=== PATIENT | male | born 1995 | race American Indian/Alaskan Native ===

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

== ENCOUNTER 2017-07-08 07:59 | Emergency (ER) | payer SELFPAY ==
[2017-07-08 08:31] LABS: Hemoglobin 14.8 gm/dl (11.8-15.2); Mean Corpuscular HGB Conc 34 % (32-34); Mean Corpuscular Hemoglobin 31 pg (28-32); Mean Corpuscular Volume 91 fl (84-94); Platelet Count 264 K/mm3 (140-440); Red Blood Count 4.82 M/mm3 (3.65-5.03); Red Cell Distribution Width 12.6 % (13.2-15.2); White Blood Count 5.9 K/mm3 (4.5-11.0)
[2017-07-08 08:45] LABS: Anion Gap 9 mmol/L; BUN/Creatinine Ratio 19; Blood Urea Nitrogen 17 mg/dL (9-20); Calcium 7.4 mg/dL (8.4-10.2); Carbon Dioxide 31 mmol/L (22-30); Chloride 104.7 mmol/L (98-107); Glucose 93 mg/dL (75-100); Potassium 4.6 mmol/L (3.6-5.0); Sodium 140 mmol/L (137-145)
[2017-07-08 10:30] LABS: Blastocytes % (Manual) 0 %; Diff Status Complete; RBC Morphology Normal
--- NOTE | 2017-07-08 12:05 | Emergency Department Report ---
ED General Adult HPI - General Chief complaint: Extremity Problem,Nontraumatic Stated complaint: EDEMA SWELLING (NEPHROTIC SYNDROME) Time Seen by Provider: 07/08/17 11:51 Source: patient Mode of arrival: Ambulatory Limitations: No Limitations - History of Present Illness Initial comments: 21-year-old male who presents emergency Department with complaint of diffuse edema and shortness of breath. Patient states she has a history of nephrotic syndrome but is not under the care of a manager shift currently. States her last couple days he has been having more shortness of breath. States he ate some peanuts and felt like his throat swelled up a little bit. He denies any history of allergies. He does not currently exhibit any airway compromise. Denies fevers chills nausea vomiting. He otherwise appears well. -: Sudden Location: head Severity scale (0 -10): 4 Worsens with: none Associated Symptoms: denies: confusion, chest pain, cough, diaphoresis, headaches, loss of appetite, malaise, nausea/vomiting - Related Data Previous Rx's Medication Instructions Recorded Last Taken Type Acetaminophen/Codeine [Tylenol 1 tab PO Q6H PRN #14 tab 12/26/16 Unknown Rx /Codeine # 3 tab] Sulfamethoxazole/Trimethoprim 1 each PO BID #20 tablet 12/26/16 Unknown Rx [Bactrim DS TAB] Valacyclovir HCl [Valtrex] 1,000 mg PO TID #30 tablet 12/26/16 Unknown Rx Allergies Allergy/AdvReac Type Severity Reaction Status Date / Time No Known Allergies Allergy Verified 10/10/15 12:11 ED Review of Systems ROS: Stated complaint: EDEMA SWELLING (NEPHROTIC SYNDROME) Other details as noted in HPI Comment: All other systems reviewed and negative Constitutional: denies: chills, fever ENT: denies: ear pain, throat pain Respiratory: denies: cough, shortness of breath, wheezing Cardiovascular: denies: chest pain, palpitations Endocrine: no symptoms reported Gastrointestinal: denies: abdominal pain, nausea, diarrhea Genitourinary: denies: urgency, dysuria Musculoskeletal: denies: back pain, joint swelling, arthralgia Skin: denies: rash, lesions Neurological: denies: headache, weakness, paresthesias Psychiatric: denies: anxiety, depression Hematological/Lymphatic: denies: easy bleeding, easy bruising ED Past Medical Hx - Past Medical History Previous Medical History?: Yes Hx Hypertension: Yes Additional medical history: Nephrotic syndrome - Surgical History Past Surgical History?: No - Social History Smoking Status: Never Smoker Substance Use Type: None - Medications Home Medications: Home Medications Medication Instructions Recorded Confirmed Last Taken Type Acetaminophen/Codeine [Tylenol 1 tab PO Q6H PRN #14 tab 12/26/16 Unknown Rx /Codeine # 3 tab] Sulfamethoxazole/Trimethoprim 1 each PO BID #20 tablet 12/26/16 Unknown Rx [Bactrim DS TAB] Valacyclovir HCl [Valtrex] 1,000 mg PO TID #30 tablet 12/26/16 Unknown Rx ED Physical Exam - General Limitations: No Limitations General appearance: alert, in no apparent distress - Head Head exam: Present: atraumatic, normocephalic - Eye Eye exam: Present: normal appearance. Absent: scleral icterus, conjunctival injection - ENT ENT exam: Present: mucous membranes dry - Neck Neck exam: Present: thyromegaly. Absent: lymphadenopathy - Respiratory Respiratory exam: Present: normal lung sounds bilaterally. Absent: respiratory distress, wheezes - Cardiovascular Cardiovascular Exam: Present: regular rate, normal rhythm. Absent: systolic murmur, diastolic murmur, rubs, gallop - GI/Abdominal GI/Abdominal exam: Present: soft, normal bowel sounds. Absent: distended, tenderness - Rectal Rectal exam: Present: deferred - Extremities Exam Extremities exam: Present: other (diffuse swelling arms legs) - Back Exam Back exam: Present: normal inspection - Neurological Exam Neurological exam: Present: alert, oriented X3 - Psychiatric Psychiatric exam: Present: normal affect, normal mood - Skin Skin exam: Present: warm, dry, intact, normal color. Absent: rash ED Course Vital Signs 07/08/17 07/08/17 08:06 12:01 Temperature 98.3 F 98.2 F Pulse Rate 70 65 Respiratory 18 14 Rate Blood Pressure 135/80 Blood Pressure 134/79 [Right] O2 Sat by Pulse 98 97 Oximetry ED Medical Decision Making - Lab Data Result diagrams: 07/08/17 08:21 07/08/17 08:21 Laboratory Results - last 24 hr 07/08/17 07/08/17 07/08/17 08:21 08:21 08:21 WBC 5.9 RBC 4.82 Hgb 14.8 Hct 44.0 MCV 91 MCH 31 MCHC 34 RDW 12.6 L Plt Count 264 Add Manual Diff Complete Total Counted 100 Seg Neuts % (Manual) 52.0 Band Neutrophils % 0 Lymphocytes % (Manual) 31.0 Reactive Lymphs % (Man) 0 Monocytes % (Manual) 5.0 Eosinophils % (Manual) 12.0 H Metamyelocytes % 0 Myelocytes % 0 Promyelocytes % 0 Blast Cells % 0 Nucleated RBC % Not Reportable Seg Neutrophils # Man 3.1 Band Neutrophils # 0.0 Lymphocytes # (Manual) 1.8 Abs React Lymphs (Man) 0.0 Monocytes # (Manual) 0.3 Eosinophils # (Manual) 0.7 H Basophils # (Manual) 0.0 Metamyelocytes # 0.0 Myelocytes # 0.0 Promyelocytes # 0.0 Blast Cells # 0.0 WBC Morphology Not Reportable Hypersegmented Neuts Not Reportable Hyposegmented Neuts Not Reportable Hypogranular Neuts Not Reportable Smudge Cells Not Reportable Toxic Granulation Not Reportable Toxic Vacuolation Not Reportable Dohle Bodies Not Reportable Pelger-Huet Anomaly Not Reportable Yusuf Rods Not Reportable Platelet Estimate Appears normal Clumped Platelets Not Reportable Plt Clumps, EDTA Not Reportable Large Platelets Not Reportable Giant Platelets Not Reportable Platelet Satelliting Not Reportable Plt Morphology Comment Not Reportable RBC Morphology Normal Dimorphic RBCs Not Reportable Polychromasia Not Reportable Hypochromasia Not Reportable Poikilocytosis Not Reportable Anisocytosis Not Reportable Microcytosis Not Reportable Macrocytosis Not Reportable Spherocytes Not Reportable Pappenheimer Bodies Not Reportable Sickle Cells Not Reportable Target Cells Not Reportable Tear Drop Cells Not Reportable Ovalocytes Not Reportable Helmet Cells Not Reportable Tierney-Lindstrom Bodies Not Reportable Roark Rings Not Reportable [place] Cells Not Reportable Bite Cells Not Reportable Crenated Cell Not Reportable Elliptocytes Not Reportable Acanthocytes (Spur) Not Reportable Rouleaux Not Reportable Hemoglobin C Crystals Not Reportable Schistocytes Not Reportable Malaria parasites Not Reportable Jose Bodies Not Reportable Hem Pathologist Commnt No Sodium 140 Potassium 4.6 Chloride 104.7 Carbon Dioxide 31 H Anion Gap 9 BUN 17 Creatinine 0.9 Estimated GFR > 60 BUN/Creatinine Ratio 19 Glucose 93 Calcium 7.4 L Troponin T < 0.010 TSH 6.780 H Free T4 0.73 L - Medical Decision Making 21-year-old male here with history of nephrotic syndrome here with mild body edema. Complains of some shortness of breath. Labs are unremarkable. He otherwise appears well. EKG is normal. Plan a chest x-ray is negative plan to discharge home. Work up was negative chest x-ray clearly labs unremarkable. Plan discharge the patient home to follow up with his primary care. At this point do not feel he needs to be on any steroids. Portions of this chart were dictated with dictation software. There may be dictation errors contained within this note. Critical care attestation.: If time is entered above; I have spent that time in minutes in the direct care of this critically ill patient, excluding procedure time. ED Disposition Clinical Impression: Peripheral edema, Shortness of breath Disposition: - TO HOME OR SELFCARE Is pt being admited?: No Condition: Stable Instructions: Leg Edema (ED) Additional Instructions: Please follow up with a primary care provider and a manager shift as soon as possible. Return for worsening swelling or shortness of breath. Referrals: PRIMARY MD ROSEMARY [Primary Care Provider] - 3-5 Days ELIZABETH GUTHRIE MD [Staff Physician] - 3-5 Days
--- NOTE | 2017-07-08 12:20 | XRay Report ---
CHEST ONE VIEW INDICATION: Shortness of breath. COMPARISON: 11/21/2015. FINDINGS: Portable, single, frontal chest radiograph demonstrates normal cardiomediastinal silhouette. Clear lungs. Unremarkable bones. Extrinsic EKG leads. CONCLUSION: No acute disease in the chest. Thank you for the opportunity to participate in this patient's care.
[2017-07-08 16:41] VITALS: BP 126/78
== END 2017-07-08 16:41 | disposition home or self-care (01) ==
LOC: ED 07:59
DX: R60.9 Edema, unspecified (principal); R06.02 Shortness of breath; I10 Essential (primary) hypertension
CPT/HCPCS: 36415; 71010; 80048; 84439; 84443; 84484; 85007; 85025; 93005; 93010; 99284